=== PATIENT | male | born 1990 | race Asian ===

== ENCOUNTER 2017-04-30 23:45 | Inpatient (IN) | payer OTHER ==
[~2017-04-30] VITALS: Ht 172.7 cm; Wt 71.0 kg
[2017-05-01 01:06] LABS: MEAN CORPUSCULAR HEMOGLOBIN 29.8 pg (27.0-33.0); MEAN CORPUSCULAR HGB CONC 34.2 g/dl (32.0-36.5); MEAN CORPUSCULAR VOLUME 87.1 fl (80.0-96.0); PLATELET COUNT, AUTOMATED 236 10^3/uL (150-450); RED CELL DISTRIBUTION WIDTH 11.6 % (11.5-14.5); WHITE BLOOD COUNT 8.8 10^3/uL (4.0-10.0)
[2017-05-01 01:22] LABS: ANION GAP 5 MEQ/L (8-16); AST/SGOT 15 U/L (7-37); BLOOD UREA NITROGEN 17 MG/DL (7-18); CALCIUM LEVEL 8.8 MG/DL (8.5-10.1); CARBON DIOXIDE LEVEL 31 MEQ/L (21-32); CHLORIDE LEVEL 104 MEQ/L (98-107); CREATININE FOR GFR 0.89 MG/DL (0.70-1.30); GLOMERULAR FILTRATION RATE > 60.0 (>60); GLUCOSE, FASTING 94 MG/DL (70-105); METHADONE URINE NEGATIVE (NEGATIVE); POTASSIUM SERUM 3.7 MEQ/L (3.5-5.1); SODIUM LEVEL 140 MEQ/L (136-145)
[2017-05-01 01:23] LABS: ALBUMIN 4.1 GM/DL (3.2-5.2); ALBUMIN/GLOBULIN RATIO 1.11 (1.00-1.93); ALKALINE PHOSPHATASE 74 U/L (45-117); ALT/SGPT 30 U/L (12-78); BILIRUBIN,DIRECT 0.1 MG/DL (0.0-0.2); BILIRUBIN,TOTAL 0.5 MG/DL (0.2-1.0); TOTAL PROTEIN 7.8 GM/DL (6.4-8.2)
[2017-05-01] MEDS ORDERED: traZODone 50 MG TAB PO PRN (02:30)
[2017-05-01] MEDS ORDERED: MOM 30ML SUSPENSION UDC PO PRN (02:30)
[2017-05-01] MEDS ORDERED: MAALOX 30 ML SUSP *UDC PO PRN (02:30)
[2017-05-01] MEDS ORDERED: ACETAMINOPHEN TAB 650MG DOSE (2X325MG) PO PRN (02:30)
[2017-05-01 03:40] VITALS: BP 130/70
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
[2017-05-01 18:00] VITALS: BP 119/76
[2017-05-01] MEDS: SERTRALINE HCL 50 MG TAB PO SCH (21:45)
[2017-05-02 07:08] VITALS: BP 121/84
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
[2017-05-02 18:00] VITALS: BP 117/74
[2017-05-02] MEDS: SERTRALINE HCL 50 MG TAB PO SCH (21:20)
[2017-05-03 06:00] VITALS: BP 114/61
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
[2017-05-03 18:00] VITALS: BP 123/62
[2017-05-03] MEDS: SERTRALINE HCL 50 MG TAB PO SCH (21:07)
[2017-05-04 06:43] VITALS: BP 112/69
[2017-05-04] MEDS ORDERED: SERT50TA PO (10:21)
[2017-05-04] MEDS ORDERED: TRAZO50TA PO (10:21)
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
--- NOTE | 2017-05-04 10:42 | HPE ---
DATE OF ADMISSION: 05/01/2017 HISTORY OF PRESENT ILLNESS (HPI): Please refer to the psychiatric history and evaluation for further details on this admission. This examination and history is intended for medical issues, which may need treatment, followup or consultation on this 27-year-old male. ALLERGIES: NO KNOWN ALLERGY. 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 Ethyl alcohol (EtOH) once a month. Smokes none. Recreational drug use none. PAST MEDICAL HISTORY: Negative. PAST SURGICAL HISTORY: [place] teeth extraction. HOME MEDICATIONS: None. FAMILY HISTORY: Noncontributory. LABORATORY STUDIES: CBC is normal. Electrolytes are normal. BUN 17. Creatinine 0.89. TSH 3.73. Toxicology was negative. 10 systems review was negative. PHYSICAL EXAMINATION: 27-year-old, cooperative male, in no acute distress. Height 68 inches. Weight 72 kg. Body mass index (BMI) 24.1. Patient is alert and oriented times three. Pupils equal and reactive to light. Extraocular movements (EOMS) intact. Cornea and sclerae clear. Conjunctiva is normal. No facial asymmetry. Pharynx, tongue and gums pink and moist. Tongue is midline. Neck is supple, without lymphadenopathy. No thyromegaly. No goiter. Carotids 2+ without bruits. Chest clear to auscultation, without wheeze or retraction. Heart is regular. Abdomen benign. Bowel sounds positive. Genitourinary ()/rectal not done. Extremities show equal strength, full range of motion. No cyanosis, clubbing or edema. Peripheral pulse equal and palpable bilaterally. Skin is warm and dry. IMPRESSION/PLAN: 1. Psychiatric. Plan per psychiatry. 2. No acute medical issues.
== END 2017-05-04 12:20 | disposition home or self-care (01) | DRG 882 ==
LOC: M ED 23:45 → M ED INP 05-01 02:21 → M PSY 05-01 03:40
PROVIDERS: ADMIT Psychiatry & Neurology Psychiatry; ATTEND Psychiatry & Neurology Psychiatry
DX: F43.20 Adjustment disorder, unspecified (principal); Z56.89 Other problems related to employment